=== PATIENT | male | born 1995 | race Caucasian/White ===

== ENCOUNTER 2017-03-12 09:01 | Emergency (ER) | payer OTHER ==
--- NOTE | 2017-03-12 09:45 | EDPHY ---
H & P Stated Complaint: st/fever/cough seen at [facility] thurs/strep test negative Time Seen by Provider: 03/12/17 09:08 HPI/ROS: Chief complaint: Cold symptoms History of present illness: This is a 21-year-old male who presents to the emergency department for cold symptoms. Patient reports the onset of symptoms over the last 3 days. Patient reports fevers, runny nose, nasal congestion, sore throat, cough, chest congestion and body aches. Denies precipitating factors. Denies alleviating factors. Denies other associated signs or symptoms including no trouble breathing or rash. - Personal History Current Tetanus/Diphtheria Vaccine: No - Medical/Surgical History Hx Asthma: No Hx Chronic Respiratory Disease: No Hx Diabetes: No Hx Cardiac Disease: No Hx Renal Disease: No Hx Cirrhosis: No Hx Alcoholism: No Hx HIV/AIDS: No Hx Splenectomy or Spleen Trauma: No Other PMH: anxiety. adhd - Social History Smoking Status: Never smoked - Physical Exam Exam: General Appearance: Alert, nontoxic. Eyes: Pupils equal and round no injection. ENT: Tympanic membranes, external auditory canals, external ears and surrounding soft tissue including over the mastoids are unremarkable. Nasopharynx is injected. There is no rhinorrhea. Oropharynx is injected. There is no edema. There is no exudate. There is no asymmetry. The uvula is midline. No elevation of the tongue. There is no hoarseness, no drooling, no trismus, no stridor. Respiratory: Chest is non tender, lungs are clear to auscultation. Cardiac: regular rate and rhythm Musculoskeletal: Neck is supple and non tender. Extremities have full range of motion and are non tender. Skin: No rashes or lesions. Neurological: Alert and oriented x4. No meningismus. Constitutional: Initial Vital Signs Temperature (C) 37.4 C 03/12/17 09:10 Heart Rate 109 H 03/12/17 09:10 Respiratory Rate 20 03/12/17 09:10 Blood Pressure 118/89 H 03/12/17 09:10 O2 Sat (%) 95 03/12/17 09:10 O2 Delivery Mode Room Air Allergies/Adverse Reactions: No Known Allergies Allergy (Verified 03/12/17 09:09) Home Medications: Medication Instructions Recorded Albuterol [Proventil Inhaler HFA 1 - 2 puffs IH Q4H #1 mdi 05/13/17 (*)] Codeine Phosphate/Guaifenesin 10 ml PO Q6 #120 ml 03/12/17 [Codeine-Guaifen 10-100 mg/5 ml] Medical Decision Making - Diagnostics Imaging Results: Imaging Impressions Chest X-Ray 03/12/17 09:17 Impression: Minimal bronchitis. No other findings for acute cardiopulmonary abnormality. ED Course/Re-evaluation: Patient seen under the supervision of my secondary supervising physician Dr. Arjun Reese. Patient presents to the emergency department for cold symptoms. He is nontoxic. Evaluation most consistent with bronchitis. I do not believe antibiotics are warranted at this time. Patient will be discharged home. Home care is discussed. Return precautions are given. Patient voiced understanding and agreement plan. Differential Diagnosis: Included but not limited to pharyngitis, tonsillitis, bronchitis, pneumonia, influenza unlikely abscess formation or meningitis - Data Points Laboratory Results: 03/12/17 03/12/17 Unknown 09:15 Group A Strep Screen NEGATIVE (NEGATIVE) Group A Strep DNA Pending Departure - Departure Disposition: Home, Routine, Self-Care Clinical Impression: Bronchitis Condition: Good Instructions: Acute Bronchitis (ED) Additional Instructions: Follow-up with [facility] for recheck Drink plenty of fluids to stay hydrated Use ibuprofen 600 mg 3 times a day for the next 2-3 days for symptom control If symptoms worsen or new symptoms develop return to the emergency room for recheck Referrals: [facility] [Other] - As per Instructions Prescriptions: Albuterol [Proventil Inhaler HFA (*)] 1 - 2 puffs IH Q4H #1 mdi Codeine Phosphate/Guaifenesin [Codeine-Guaifen 10-100 mg/5 ml] 10 ml PO Q6 #120 ml
[2017-03-12 10:03] VITALS: BP 122/78; PULSE 87; RESP 16; TEMP 98.2; O2SAT 98
== END 2017-03-12 10:03 | disposition home or self-care (01) ==
DX: J40 Bronchitis, not specified as acute or chronic (principal)